=== PATIENT | male | born 1975 | race Caucasian/White ===

== ENCOUNTER 2019-08-10 09:05 | Emergency (ER) | payer MEDICAID ==
[~2019-08-10] VITALS: Ht 180.3 cm; Wt 90.9 kg
[~2019-08-10 09:05] MED LIST: FLUO20CA25 PO; HYDR118S10 PO; LORA0.5T34 PO; PANT40SU PO; PRM25T PO; RNT150T PO
--- NOTE | 2019-08-10 09:39 | ED Back Pain ---
General Chief Complaint: Back Problems Stated Complaint: WEAK / TIRED Nursing Triage Note: AMB TO ED WITH L BACK FLANK PAIN ONSET TODAY HAS BEEN TIRED APPEARS ANXIOUS ON ADMIT. Nursing Sepsis Screen: No Definite Risk Source of Information: Patient (VERY VAGUE AND DIFFICULT HISTORIAN) History of Present Illness Date Seen by Provider: August 10, 2019 Time Seen by Provider: 09:20 Initial Comments PT ARRIVES VIA POV FROM HOME PT SATES HE WOKE UP THIS MORNING AND HAD PAIN IN THE LOWER PART OF HIS BACK HAS NOT TAKEN ANYTHING FOR PAIN AND PAIN IS NOT BAD NOW PT HAS HISTORY OF CHRONIC BACK PAIN STATES ON SUNDAY NIGHT "I FELT REALLY HEAVY AND I COULDN'T STAY AWAKE AND I FEEL REALLY TIRED THE LAST 2 DAYS" STATES HE HAS BEEN SLEEPING ALOT THE LAST 2 DAYS AND THEN WHEN HE GOT UP THIS MORNING HIS LOWER BACK HURT STATES ON SUNDAY "A SENSATION CAME OVER MED AND I GOT REAL ANXIOUS" "AND MY HEART WAS PUMPIN' AND PUMPIN' AND PUMPIN'" STATES THEN HE WAS REALLY TIRED NO FEVER/SWEATS/CHILLS STATES THIS MORNING HE COUGHED REALLY HARD AND THREW UP ONCE--OTHERWISE HAS NOT BEEN COUGHING NO NAUSEA HAD DIARRHEA X 1 THIS AM NO ABDOMINAL PAIN HAS BEEN DRINKING WATER THIS MORNING STATES HE HAS BEEN URINATING ALOT TODAY, BUT NO PAIN ON URINATION NO KNOWN SICK CONTACTS OR EXPOSURE TO CORONAVIRUS 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 Other Comments PCP: DR. OSB[facility] AT [facility] Allergies and Home Medications Allergies Coded Allergies: No Known Drug Allergies (Unverified , 07/07/10) Home Medications Fluoxetine Hcl 20 Mg Capsule, 1 EACH PO DAILY, (Reported) Hydrocodone/Acetaminophen 1 Each Tablet, 2 EACH PO Q6 PRN, (Reported) Lorazepam 0.5 Mg Tablet, 0.5 MG PO TI PRN, (Reported) Patient Home Medication List Home Medication List Reviewed: Yes Review of Systems Constitutional: see HPI; No chills, No diaphoresis, No dizziness, No fever; malaise EENTM: no symptoms reported; No nose congestion, No throat pain Respiratory: see HPI; No orthopnea, No phlegm, No short of breath, No wheezing Cardiovascular: see HPI; No chest pain, No edema, No syncope Gastrointestinal: see HPI; No abdominal pain; diarrhea; No nausea Genitourinary: see HPI, frequency Musculoskeletal: see HPI, back pain Skin: no symptoms reported Psychiatric/Neurological: No Symptoms Reported; Denies Headache, Denies Numbness, Denies Paresthesia, Denies Tingling, Denies Weakness Past Emipjzf-Roiicm-Vhuimh Hx Patient Social History Alcohol Use: Past History (NONE FOR 10 YEARS) Recreational Drug Use: No Smoking Status: Current Everyday Smoker (1 PPD) Type Used: Cigarettes Recent Foreign Travel: No Contact w/Someone Who Travel: No Recent Infectious Disease Expo: No Immunizations Up To Date Tetanus Booster (TDap): Less than 5yrs Seasonal Allergies Seasonal Allergies: No Past Medical History Surgeries: No Respiratory: No (HAS BEEN PRESCRIBED AN INHALER FOR AN EPISODE OF BRONCHITIS) Cardiac: No Neurological: No Reproductive Disorders: No Gastrointestinal: No Musculoskeletal: Yes Chronic Back Pain Endocrine: No HEENT: No Cancer: No Psychosocial: No Integumentary: No Blood Disorders: No Family Medical History No Pertinent Family Hx Physical Exam Vital Signs Vital Signs - First Documented 08/10/19 09:19 Temp 36.7 Pulse 88 Resp 18 B/P (MAP) 146/99 (115) Pulse Ox 98 O2 Delivery Room Air Capillary Refill : Less Than 3 Seconds Height, Weight, BMI Height: 6'0" Weight: 170lbs. oz. 77.025734xn; 27.00 BMI Method:Stated General Appearance: No Apparent Distress, WD/WN Neck: Full Range of Motion, Normal Inspection, Non Tender, Supple Cardiovascular: Regular Rate, Rhythm, No Edema, No Murmur, Normal Peripheral Pulses Respiratory: Normal Breath Sounds, No Accessory Muscle Use, No Respiratory Distress Gastrointestinal: Normal Bowel Sounds, No Organomegaly, No Pulsatile Mass, Non Tender, Soft Back: No CVA Tenderness Extremity: Normal Capillary Refill, Normal Inspection, Normal Range of Motion, Non Tender, No Calf Tenderness, No Pedal Edema Neurologic/Psychiatric: Alert, Oriented x3, No Motor/Sensory Deficits, behavioral health tech II- XII Norm as Tested Skin: Normal Color, Warm/Dry; No Rash Progress/Results/Core Measures Results/Orders Lab Results Laboratory Tests Test 08/10/19 09:32 08/10/19 10:13 Range/Units Urine Color YELLOW Urine Clarity CLEAR Urine pH 6.0 5-9 Urine Specific [place] 1.015 L 1.016-1.022 Urine Protein NEGATIVE NEGATIVE Urine Glucose (UA) NEGATIVE NEGATIVE Urine Ketones NEGATIVE NEGATIVE Urine Nitrite NEGATIVE NEGATIVE Urine Bilirubin NEGATIVE NEGATIVE Urine Urobilinogen 0.2 < = 1.0 MG/DL Urine Leukocyte Esterase NEGATIVE NEGATIVE Urine RBC (Auto) NEGATIVE NEGATIVE Urine RBC NONE /HPF Urine WBC NONE /HPF Urine Crystals NONE /LPF Urine Bacteria NEGATIVE /HPF Urine Casts NONE /LPF Urine Mucus NEGATIVE /LPF Urine Culture Indicated NO Urine Opiates Screen POSITIVE H NEGATIVE Urine Oxycodone Screen NEGATIVE NEGATIVE Urine Methadone Screen NEGATIVE NEGATIVE Urine Propoxyphene Screen NEGATIVE NEGATIVE Urine Barbiturates Screen NEGATIVE NEGATIVE Ur Tricyclic Antidepressants Screen NEGATIVE NEGATIVE Urine Phencyclidine Screen NEGATIVE NEGATIVE Urine Amphetamines Screen NEGATIVE NEGATIVE Urine Methamphetamines Screen NEGATIVE NEGATIVE Urine Benzodiazepines Screen POSITIVE H NEGATIVE Urine Cocaine Screen NEGATIVE NEGATIVE Urine Cannabinoids Screen NEGATIVE NEGATIVE White Blood Count 12.1 H 4.3-11.0 10^3/uL Red Blood Count 4.90 4.35-5.85 10^6/uL Hemoglobin 15.8 13.3-17.7 G/DL Hematocrit 46 40-54 % Mean Corpuscular Volume 93 80-99 FL Mean Corpuscular Hemoglobin 32 25-34 PG Mean Corpuscular Hemoglobin Concent 35 32-36 G/DL Red Cell Distribution Width 13.1 10.0-14.5 % Platelet Count 349 130-400 10^3/uL Mean Platelet Volume 10.1 7.4-10.4 FL Neutrophils (%) (Auto) 67 42-75 % Lymphocytes (%) (Auto) 25 12-44 % Monocytes (%) (Auto) 8 0-12 % Eosinophils (%) (Auto) 0 0-10 % Basophils (%) (Auto) 0 0-10 % Neutrophils # (Auto) 8.0 H 1.8-7.8 X 10^3 Lymphocytes # (Auto) 3.0 1.0-4.0 X 10^3 Monocytes # (Auto) 0.9 0.0-1.0 X 10^3 Eosinophils # (Auto) 0.1 0.0-0.3 10^3/uL Basophils # (Auto) 0.0 0.0-0.1 10^3/uL Sodium Level 140 135-145 MMOL/L Potassium Level 4.0 3.6-5.0 MMOL/L Chloride Level 110 H 98-107 MMOL/L Carbon Dioxide Level 19 L 21-32 MMOL/L Anion Gap 11 5-14 MMOL/L Blood Urea Nitrogen 10 7-18 MG/DL Creatinine 0.82 0.60-1.30 MG/DL Estimat Glomerular Filtration Rate > 60 BUN/Creatinine Ratio 12 Glucose Level 108 H 70-105 MG/DL Calcium Level 9.2 8.5-10.1 MG/DL Corrected Calcium 9.0 8.5-10.1 MG/DL Magnesium Level 2.2 1.6-2.4 MG/DL Total Bilirubin 0.6 0.1-1.0 MG/DL Aspartate Amino Transf (AST/SGOT) 19 5-34 U/L Alanine Aminotransferase (ALT/SGPT) 24 0-55 U/L Alkaline Phosphatase 61 40-136 U/L Total Protein 6.6 6.4-8.2 GM/DL Albumin 4.2 3.2-4.5 GM/DL My Orders Orders - RON THIBODEAUX DO Drug Screen Stat (Urine) (08/10/19 09:29) Ua Culture If Indicated (08/10/19 09:29) Cbc With Automated Diff (08/10/19 10:08) Comprehensive Metabolic Panel (08/10/19 10:08) Magnesium (08/10/19 10:08) Thyroid Analyzer (08/10/19 10:08) Vital Signs/I&O 08/10/19 09:19 Temp 36.7 Pulse 88 Resp 18 B/P (MAP) 146/99 (115) Pulse Ox 98 O2 Delivery Room Air Blood Pressure Mean: 115 Progress Progress Note : Progress Note UDS + FOR OPIATES AND BENZODIAZEPINES--PT CLAIMS HE ONLY TAKES VITAMINS AND JUST STARTED TAKING THEM THE LAST COUPLE OF DAYS BECAUSE HE HAS BEEN TIRED Departure Impression Primary Impression: Low back pain Additional Impressions: Malaise and fatigue Anxiety Disposition: 01 HOME, SELF-CARE Condition: Stable Departure-Patient Inst. Referrals: [facility] (PCP/Family) Primary Care Physician Patient Instructions: Low Back Pain (DC), Anxiety, Adult (DC), Dealing with Fatigue from the Drugs You Take Add. Discharge Instructions: MOIST HEAT TO BACK AT 20 MINUTE INTERVALS NO LIFTING OVER 5 LBS, NO TWISTING OR BENDING AT THE WAIST FOLLOW UP WITH YOUR DR IN 3-4 DAYS IF NO BETTER All discharge instructions reviewed with patient and/or family. Voiced understanding. Scripts Meloxicam (Mobic) 15 Mg Tablet 15 MG PO DAILY, #10 TAB Prov: RON THIBODEAUX DO 08/10/19 RON THIBODEAUX DO August 10, 2019 09:38
[2019-08-10 09:40] LABS: BILIRUBIN,URINE NEGATIVE (NEGATIVE); CLARITY,URINE CLEAR; COLOR,URINE YELLOW; GLUCOSE, URINE (UA) NEGATIVE (NEGATIVE); KETONES,URINE NEGATIVE (NEGATIVE); LEUKOCYTE ESTERASE ,URINE NEGATIVE (NEGATIVE); NITRITE,URINE NEGATIVE (NEGATIVE); PROTEIN,URINE NEGATIVE (NEGATIVE)
[2019-08-10 09:48] LABS: BACTERIA,URINE NEGATIVE /HPF
[2019-08-10 09:53] LABS: AMPHETAMINE SCREEN, URINE NEGATIVE (NEGATIVE); BARBITURATE SCREEN URINE NEGATIVE (NEGATIVE); BENZODIAZEPINES SCREEN URINE POSITIVE (NEGATIVE); CANNABINOID SCREEN, URINE NEGATIVE (NEGATIVE); COCAINE SCREEN URINE NEGATIVE (NEGATIVE); METHADONE STAT NEGATIVE (NEGATIVE); METHAMPHETAMINE SCREEN URINE S NEGATIVE (NEGATIVE); OPIATE SCREEN URINE POSITIVE (NEGATIVE); OXYCODONE STAT NEGATIVE (NEGATIVE); PROPOXYPHENE STAT NEGATIVE (NEGATIVE); TRICYCLIC ANTIDEPRESSANTS SCRE NEGATIVE (NEGATIVE)
[2019-08-10 10:22] LABS: BASOPHILS % (AUTO) 0 % (0-10); EOSINOPHILS # (AUTO) 0.1 10^3/uL (0.0-0.3); EOSINOPHILS % (AUTO) 0 % (0-10); HEMATOCRIT 46 % (40-54); HEMOGLOBIN 15.8 G/DL (13.3-17.7); LYMPHOCYTES % (AUTO) 25 % (12-44); MEAN CORPUSCULAR HEMOGLOBIN 32 PG (25-34); MEAN CORPUSCULAR HGB CONC 35 G/DL (32-36); MEAN CORPUSCULAR VOLUME 93 FL (80-99); MEAN PLATELET VOLUME 10.1 FL (7.4-10.4); MONOCYTES # (AUTO) 0.9 X 10^3 (0.0-1.0); MONOCYTES % (AUTO) 8 % (0-12); NEUTROPHILS % (AUTO) 67 % (42-75); PLATELET COUNT 349 10^3/uL (130-400); RED CELL DISTRIBUTION WIDTH 13.1 % (10.0-14.5); WHITE BLOOD COUNT 12.1 10^3/uL (4.3-11.0)
[2019-08-10 10:31] LABS: ALBUMIN 4.2 GM/DL (3.2-4.5); CHLORIDE 110 MMOL/L (98-107); SODIUM 140 MMOL/L (135-145)
[2019-08-10 10:32] LABS: CALCIUM 9.2 MG/DL (8.5-10.1)
[2019-08-10 10:33] LABS: GLUCOSE 108 MG/DL (70-105); TOTAL PROTEIN 6.6 GM/DL (6.4-8.2)
[2019-08-10 10:34] LABS: CARBON DIOXIDE 19 MMOL/L (21-32)
[2019-08-10 10:35] LABS: BILIRUBIN,TOTAL 0.6 MG/DL (0.1-1.0)
[2019-08-10 10:37] LABS: ALKALINE PHOSPHATASE 61 U/L (40-136); CREATININE SERUM 0.82 MG/DL (0.60-1.30); GFR ESTIMATED > 60
[2019-08-10 10:38] LABS: BUN/CREATININE RATIO 12
[2019-08-10 10:40] LABS: ALANINE AMINOTRANSFERASE 24 U/L (0-55); MAGNESIUM 2.2 MG/DL (1.6-2.4)
[2019-08-10 11:01] LABS: TSH (THYROID ANALYZER) 0.83 UIU/ML (0.35-4.94)
[2019-08-10] MEDS ORDERED: MELO15TA14 PO (11:01)
[2019-08-10 11:08] VITALS: BP 114/37
== END 2019-08-10 11:07 | disposition home or self-care (01) ==
LOC: EDUNIT# 09:05 → ER 09:07
DX: M54.5 Low back pain (principal); R53.81 Other malaise; R53.83 Other fatigue; F41.9 Anxiety disorder, unspecified; F17.210 Nicotine dependence, cigarettes, uncomplicated
CPT/HCPCS: 36415; 80053; 80306; 81000; 83735; 84443; 85025